=== PATIENT | male | born 1990 | race Caucasian/White ===

== ENCOUNTER 2017-02-04 09:26 | Emergency (ER) | payer SELFPAY ==
[~2017-02-04] VITALS: Ht 175.3 cm; Wt 68.0 kg
[~2017-02-04 09:26] MED LIST: BENADRY2 EX; BENADRYL 50MG C50 MG PO; NO HOME MEDS; SILVADENE1 % EX; ZPAK PO
[2017-02-04] MEDS ORDERED: MEDDOSEPAK PO (10:50)
[2017-02-04] MEDS ORDERED: TORADOL PO (10:50)
[2017-02-04 10:52] VITALS: BP 130/87
== END 2017-02-04 10:45 | disposition home or self-care (01) | DRG 563 ==
LOC: ED 09:26
DX: S46.912A Strain of unspecified muscle, fascia and tendon at shoulder and upper arm level, left arm, initial encounter (principal); M25.512 Pain in left shoulder

== ENCOUNTER 2017-06-14 11:56 | Emergency (ER) | payer SELFPAY ==
[~2017-06-14] VITALS: Ht 175.3 cm; Wt 77.0 kg
[~2017-06-14 11:56] MED LIST changes: +MEDDOSEPAK PO; +TORADOL PO
[2017-06-14] MEDS ORDERED: PREDNISONE50 MG PO (12:26)
[2017-06-14 13:45] VITALS: BP 124/77
== END 2017-06-14 13:45 | disposition home or self-care (01) | DRG 556 ==
LOC: ED 11:56
DX: M25.532 Pain in left wrist (principal); F17.210 Nicotine dependence, cigarettes, uncomplicated

== ENCOUNTER 2017-10-16 11:01 | Emergency (ER) | payer SELFPAY ==
[~2017-10-16] VITALS: Ht 175.3 cm; Wt 70.0 kg
[~2017-10-16 11:01] MED LIST changes: +PREDNISONE50 MG PO
[2017-10-16] MEDS ORDERED: PREDNISONE50 MG PO (11:18)
[2017-10-16 12:55] VITALS: BP 117/79
== END 2017-10-16 13:08 | disposition home or self-care (01) | DRG 556 ==
LOC: ED 11:01
DX: M25.532 Pain in left wrist (principal); M25.512 Pain in left shoulder; M25.562 Pain in left knee; M25.561 Pain in right knee; W23.1XXA Caught, crushed, jammed, or pinched between stationary objects, initial encounter; Y92.810 Car as the place of occurrence of the external cause

== ENCOUNTER 2020-11-04 12:08 | Emergency (ER) | payer OTHER | END 2020-11-04 13:54 | disposition left against medical advice (07) | DRG 951 | LOC: ED 12:08 → LWOBS 13:54 | DX: Z53.21 Procedure and treatment not carried out due to patient leaving prior to being seen by health care provider (principal) ==

== ENCOUNTER 2022-10-26 12:28 | Emergency (ER) | payer SELFPAY ==
[~2022-10-26] VITALS: Ht 175.3 cm; Wt 86.0 kg
[2022-10-26 12:32] VITALS: BP 119/80
[2022-10-26] MEDS ORDERED: OXYCODONE5 M1 PO (12:44)
[2022-10-26 13:02] VITALS: BP 113/74
[2022-10-26 13:04] LABS: BASO% 0.2 % (0-3); EOS% 0.8 % (0-8); HEMATOCRIT 47.9 % (39.0-50.0); HEMOGLOBIN 16.4 g/dl (14.0-18.0); IMMATURE GRANULOCYTES 0.1 % (0.0-5.0); LYMPH% 15.6 % (15-41); MEAN CELL VOLUME 91.8 fL CALC (80.0-100.0); MEAN CORPUSCULAR HGB 31.4 pG CALC (26.0-32.0); MEAN CORPUSCULAR HGB CONC 34.2 g/dL CAL (32.0-36.0); NEUT# 7.46 thou/uL (1.82-7.42); NEUT% 74.3 % (42-76); RED BLOOD COUNT 5.22 mill/uL (4.70-6.10); RED CELL DISTRI WIDTH 12.5 % (11.5-15.5)
[2022-10-26 14:00] VITALS: BP 108/81
[2022-10-26 14:09] LABS: ALBUMIN 3.9 g/dL (3.2-5.0); ALKALINE PHOSPHATASE 67 u/l (38-126); ANION GAP 13 (6-22 (CALC)); BILIRUBIN, TOTAL 0.7 mg/dL (0.2-1.3); BUN 13 mg/dL (9-20); BUN/CREATININE RATIO 16 (12-20 (CALC)); CHLORIDE 113 mmol/l (95-108); CREATININE 0.8 mg/dL (0.7-1.3); GFR FOR AFR.AMER. > 60 ML/MIN (>=60 (CALC)); GFR OTHER RACES > 60 ML/MIN (>=60 (CALC)); LIPASE 84 u/l (23-300); POTASSIUM 3.6 mmol/l (3.5-5.1); SGOT/AST 26 u/l (17-59); SODIUM 140 mmol/l (137-146); TOTAL PROTEIN 6.7 g/dL (6.3-8.2)
[2022-10-26 14:12] LABS: CARBON DIOXIDE 18 mmol/l (22-30)
[2022-10-26 14:31] VITALS: BP 112/71
[2022-10-26 14:32] LABS: URINE BILIRUBIN - DIPSTICK Negative (NEGATIVE); URINE BLOOD DIPSTICK Negative (NEGATIVE); URINE COLOR Yellow; URINE GLUCOSE - DIPSTICK Negative (NEGATIVE); URINE KETONE Negative (NEGATIVE); URINE LEUK ESTERASE Negative (NEGATIVE); URINE NITRITE - DIPSTICK Negative (Negative); URINE PH 5.5 (4.5-8.0); URINE PROTEIN - DIPSTICK Negative (NEG-TRACE); URINE SPECIFIC GRAVITY <=1.005; URINE UROBILINOGEN - DIPSTICK 0.2 E.U./dL (0.2)
[2022-10-26] MEDS ORDERED: FLEXERIL5 M1 PO (15:22)
[2022-10-26 15:30] VITALS: BP 112/78
[2022-10-26 15:41] VITALS: BP 112/78
== END 2022-10-26 15:50 | disposition home or self-care (01) | DRG 552 ==
LOC: ED 12:28
PROVIDERS: Family Medicine
DX: M54.6 Pain in thoracic spine (principal); M54.2 Cervicalgia; F17.200 Nicotine dependence, unspecified, uncomplicated; Z20.822 Contact with and (suspected) exposure to COVID-19

== ENCOUNTER 2024-02-13 10:56 | Emergency (ER) | payer OTHER ==
[~2024-02-13] VITALS: Ht 175.3 cm; Wt 80.7 kg
[~2024-02-13 10:56] MED LIST changes: +FLEXERIL5 M1 PO; +OXYCODONE5 M1 PO
[2024-02-13 11:22] VITALS: BP 112/66
[2024-02-13] MEDS ORDERED: DEXAMETHASONE SOD. PHOSPHATE 10 MG/ML VIAL IM ONE (12:40)
[2024-02-13] MEDS ORDERED: COLCHICINE 0.6 MG/TAB PO ONE ×2 (12:40)
[2024-02-13] MEDS ORDERED: KETOROLAC TROMETHAMINE 30 MG/ML SDV IM ONE (12:40)
[2024-02-13] MEDS ORDERED: PREDNISONE20 MG PO (12:46)
[2024-02-13] MEDS ORDERED: NAPROXEN500 MG PO (12:46)
== END 2024-02-13 13:12 | disposition home or self-care (01) | DRG 554 ==
LOC: ED 10:56
DX: M10.021 Idiopathic gout, right elbow (principal); F17.210 Nicotine dependence, cigarettes, uncomplicated
CPT/HCPCS: J1100

== ENCOUNTER 2024-04-11 12:04 | Emergency (ER) | payer OTHER ==
[~2024-04-11] VITALS: Ht 175.3 cm; Wt 81.6 kg
[~2024-04-11 12:04] MED LIST changes: +NAPROXEN500 MG PO; +PREDNISONE20 MG PO
[2024-04-11 12:13] VITALS: BP 121/87
[2024-04-11 12:15] VITALS: BP 142/91
[2024-04-11 12:30] VITALS: BP 137/96
[2024-04-11] MEDS ORDERED: COLCHICINE 0.6 MG/TAB PO ONE ×2 (12:35)
[2024-04-11] MEDS ORDERED: MORPHINE SULFATE 4 MG/ML VIAL IM ONE (12:35)
[2024-04-11] MEDS ORDERED: methylPREDNISolone SODIUM SUCC 125 MG/2 ML SDV IM ONE (12:35)
[2024-04-11] MEDS ORDERED: TRAMADOL HYDROC50 M1 PO (12:37)
[2024-04-11] MEDS ORDERED: PREDNISONE10 MG PO (12:37)
[2024-04-11 12:45] VITALS: BP 131/90; BP 137/96
== END 2024-04-11 13:15 | disposition home or self-care (01) | DRG 547 ==
LOC: ED 12:04
DX: M06.9 Rheumatoid arthritis, unspecified (principal); T38.0X6A Underdosing of glucocorticoids and synthetic analogues, initial encounter; Z91.128 Patient's intentional underdosing of medication regimen for other reason